=== PATIENT | male | born 1960 | race Caucasian/White ===

== ENCOUNTER 2022-06-04 11:52 | Inpatient (IN) ==
--- NOTE | 2022-05-31 16:07 | Anesthesiology Consultation ---
Date of Service May 31, 2022 Assessment & Plan (1) Encounter for pre-operative examination: Plan - check BSG am DOS. - concussion 05/30/22: Pt reports persistent headache, denies change or worsening. Denies visual changes, nausea, vomiting, dizziness, lightheadedness, photophobia, phonophobia, lethargy or somnolence. - CAD, h/o TN: Pt reports history of TN in 2002 and catheterization without stent placement. He does not follow with cardiology, catheterization records not available. He denies CP or SOB with 1 FOS. - DM: pt self-discontinued metformin several months ago, no recent A1c. Pre-op glucose 275. - ER [facility] 05/30/22: "...fall that occurred on Saturday into Saturday morning. The patient was intoxicated and fell down approximately 20 stairs striking the front of his face on concrete. The patient states that he went about his daily routine Saturday as well as today but was noticing that he was having difficulty with eating and pain to the mid face. The patient also noticed some black eyes. Patient did have LOC at the time of the event does take a baby aspirin for known history of prior heart issue to where he states that he had a heart attack but did not require any stents...frontal bone fracture with small amount of pneumocephalus as well as LeFort II fracture. Patient was ordered antibiotics..." - Case discussed in detail with Dr. Shi who advised given ijury and indication for surgery, patient can proceed at this time without further evaluation or testing from his standpoint. - COVID screening: Per assessment director on 05/31/2022: Travel screen negative, no known COVID-19 positive contacts or current COVID-19 related symptoms in past 2 weeks. To surgeon's discretion if preop COVID testing is needed. Chart Review Chart Review: Acceptable Risk for Surgery and Patient NOT seen in Pre Admission Testing History Surgery Operation Date: 06/04/22 14:15 Proposed Procedures p Lefort II Open Reduction - Duncan Loredo, GEORGE Height/Weight Height: 5 ft 8 in Weight: 83.915 kg Allergies Allergy/AdvReac Type Severity Reaction Status Date / Time No Known Allergies Allergy Unverified 05/31/22 15:13 Medications Home Medications Medication Instructions Recorded Confirmed Last Taken amoxicillin 875 mg-potassium 1 tab PO BID #20 tabs 05/30/22 05/31/22 Unknown clavulanate 125 mg tablet aspirin 81 mg tablet,delayed 81 mg PO HS 05/30/22 05/31/22 05/24/22 release chlorhexidine gluconate 0.12 % 15 ml buccal BID #473 mL 05/30/22 05/31/22 Unknown mouthwash (Peridex) oxycodone 5 mg tablet 5 mg PO Q6 PRN pain #12 tabs 05/30/22 05/31/22 Unknown rosuvastatin 10 mg tablet 10 mg PO HS 05/30/22 05/31/22 05/24/22 Past Medical History Medical History CAD (coronary atherosclerotic disease) Concussion Diabetes was taking metformin but stopped on his own , has not taken in 3-4 months Fall History of COVID-07/2020- sweating, CORDOVA, no hospitalization, no current issues HLD (hyperlipidemia) Hx of myocardial infarction 2002- card cath, no stents- [facility] Past Family History Family History Other No family history of adverse response to anesthesia Past Surgical History Surgical History Hx of appendectomy Hx of cardiac catheterization 2 total (2002 and 2004) --no stents-- [facility] --does not follow w/ cardio Hx of wisdom tooth extraction Social History Smoking Status: Never smoker Do You Dip or Chew Tobacco: No Hx Alcohol Use: Yes alcohol intake frequency: a few times a week Hx Substance Use: No substance use type: does not use Lab Results Anesthesia Preop Results Results Anesthesia Widget: WBC 11.84 K/ul (4.8-10.8) H 05/30/22 Hgb 16.9 g/dl (14.0-18.0) 05/30/22 Hct 49.1 % (40.1-51.0) 05/30/22 Plt 261 K/uL (130-400) 05/30/22 Na 132 mmol/L (136-145) L 05/30/22 K 4.2 mmol/L (3.5-5.1) 05/30/22 Cl 93 mmol/L (98-107) L 05/30/22 CO2 26 mmol/L (21-32) 05/30/22 BUN 19 mg/dl (6-23) 05/30/22 Creat 1.08 mg/dl (0.6-1.4) 05/30/22 Glucose Level 275 mg/dl (70-99(Fasting)) H 05/30/22 Testing Electrocardiogram Date: 05/30/22 Poor data quality NSR, rate 67 bpm Possible left atrial enlargement Cervical Spine Date: 05/30/22 CT There is no evidence of fracture or subluxation involving the cervical spine. Other Testing Head CT 05/30/22 1. There is no hemorrhage, mass effect, or evidence of acute territorial ischemia by CT criteria. 2. There is a comminuted fracture of the frontal bone with depressed fragments involving the anterior wall of the frontal sinus. Fracture extends to the posterior wall of the frontal sinuses and there is trace pneumocephalus. 3. Bilateral orbital and facial bone fractures are partially visualized as above. See report of facial bone CT performed concurrently for detailed facial bone findings. 4. Blood products are noted in the frontal and maxillary sinuses. Face CT 05/30/22 1. Findings consistent with extensive acute bilateral facial fractures involving the midface with separation of the midface from the skull base and involvement of the pterygoid plates. The findings favor a LeFort type II injury. Maxillofacial surgical consultation is recommended. 2. Facial contusions with extensive soft tissue gas, as described above. Minimal orbital gas. No retrobulbar hematoma. Globes intact. 3. Trace pneumocephalus. 4. Hemorrhage within the sinuses related to the fractures, as detailed above.
[~2022-06-04 11:52] MED LIST: LACTATED RINGER'S 1,000 ML IV SCH; LR 15ML/HR IV SCH; ceFAZolin 2000MG 2,000 MG/15 ML SYR IV SCH
[2022-06-04] MEDS ORDERED: TRIAMCINOLONE ACET 0.1% OINT 15 GM TUBE ONE (12:19)
[2022-06-04] MEDS ORDERED: BUPIVACAINE/EPINEPHRINE 0.5% 1:200,000 1.8 ML CARP ONE (12:19)
[2022-06-04] MEDS ORDERED: CHLORHEXIDINE GLUCONATE 0.12% 480 ML MT ONE (12:20)
[2022-06-04] MEDS ORDERED: LIDOCAINE/EPINEPHRINE 1.7 ML CTR ONE (12:20)
[2022-06-04] MEDS ORDERED: MIDAZOLAM HCL 1 MG/ML 2ML VIAL ONE (12:47)
[2022-06-04] MEDS ORDERED: fentaNYL citrate 100 MCG/2 ML VIAL ONE (12:47)
[2022-06-04] MEDS ORDERED: ATROPINE SULFATE 0.1 MG/ML 10ML SYR IV PRN (13:04)
[2022-06-04] MEDS ORDERED: ONDANSETRON INJ 2 MG/ML 2 ML VIAL IV PRN ×2 (13:04→15:55)
[2022-06-04] MEDS ORDERED: ePHEDrine sulfate 50 MG/ML AMP IV PRN (13:04)
[2022-06-04] MEDS ORDERED: HYDROmorphone INJ 1 MG/ML SYRINGE IV PRN (13:04)
[2022-06-04] MEDS ORDERED: fentaNYL citrate 100 MCG/2 ML VIAL IV PRN (13:04)
[2022-06-04] MEDS ORDERED: OXYMETAZOLINE 0.05% 30 ML BTL ONE (13:14)
[2022-06-04] MEDS ORDERED: ACETAMINOPHEN 1000 MG/100 ML IV IV ONE (13:15)
[2022-06-04] MEDS ORDERED: PROMETHAZINE HCL INJ 25 MG/ML 1 ML VIAL ONE (13:15)
--- NOTE | 2022-06-04 13:22 | History & Physical Bridge Note ---
Date of Service June 04, 2022 History & Physical Bridge Note I have examined the patient, reviewed the History & Physical and in the interval since the performance of the History & Physical I have noted the following changes of clinical significance: no changes noted Reviewed the treatment plan OK for the reduction of the Lefort II fracture in OR with GA
[2022-06-04] MEDS ORDERED: HYDROmorphone INJ 2 MG/ML SYR/VIAL ONE (14:08)
[2022-06-04] MEDS ORDERED: KETAMINE 50 MG/5 ML SYRINGE ONE (14:08)
--- NOTE | 2022-06-04 14:19 | Communication Note ---
Date of Service: June 04, 2022 Intubation note: Per surgeon, he was requesting that patient have a nasal tube in order for him to successfully complete the surgery. Patient made aware of risks/benefits of nasal intubation and agreed to proceed. He was given two sprays of Afrin in his right nostril. We wanted to avoid a blind nasal intubation in setting of Lefort II fracture. Plan was for an asleep fiberoptic nasal intubation. Patient was induced and I attempted twice to use fiberoptic scope via his right nare to do a nasal intubation with a 7.5 nasal von tube. I was able to visualize internal structures (did not blindly advance fiberoptic scope at any point) but unable to visualize vocal cords. In between each attempt patient was gently mask ventilated in order to avoid significant hypoxia. On third attempt, I used a combination of the fiberoptic scope via his right nare and an oral glidescope. Using the glidescope, I was able to guide the fiberoptic scope through the vocal cords and watched as the nasal tube was inserted past the vocal cords and into the trachea. I used the fiberoptic scope to correctly place the nasal von at an appropriate depth (28cm at right nare) and it was secured in place. Ballon was inflated and patient had b/l breath sounds and positive ETCO2. Both the surgeon and I positioned the patient's head in midline position and secured his head and nasal tube with silk tape. His vital signs remained stable throughout the intubation attempts.
[2022-06-04] MEDS ORDERED: PROPOFOL IV EMULSION 10 MG/ML 20 ML VIAL IV ONE ×2 (14:23)
[2022-06-04] MEDS ORDERED: SUCCINYLCHOLINE CHLORIDE 20 MG/ML 10 ML VIAL IV ONE (14:23)
[2022-06-04] MEDS ORDERED: LIDOCAINE 2% MPF LOCAL 5 ML VIAL INFIL ONE (14:23)
[2022-06-04] MEDS ORDERED: ONDANSETRON INJ 2 MG/ML 2 ML VIAL ONE (14:23)
[2022-06-04] MEDS ORDERED: ROCURONIUM BROMIDE 10 MG/ML 5 ML VIAL IV ONE (14:23)
[2022-06-04] MEDS ORDERED: LABETALOL HCL IV 5 MG/ML 20ML IV ONE ×2 (14:26→15:06)
[2022-06-04] MEDS ORDERED: DEXAMETHASONE SOD INJ 4 MG/ML VIAL ONE (15:17)
[2022-06-04] MEDS ORDERED: hydrALAZINE HCL 20 MG/ML VIAL ONE (15:46)
[2022-06-04] MEDS ORDERED: MoRPHine SULFATE 2 MG/ML CARP IV PRN (15:55)
[2022-06-04] MEDS ORDERED: MoRPHine SULFATE 4 MG/ML 1 ML CARP\\VIAL IV PRN (15:55)
[2022-06-04] MEDS ORDERED: LORazepam 1 MG in SYRINGE 0 ML IV PRN (15:55)
[2022-06-04] MEDS ORDERED: SODIUM CHLORIDE 0.65% NA SOLN 45 ML (OCEAN) PRN (15:55)
[2022-06-04] MEDS ORDERED: HYDROCODONE/ACETAMOPHEN 5/325MG TAB PO PRN (16:00)
[2022-06-04] MEDS ORDERED: ceFAZolin 2000MG 2,000 MG/15 ML SYR IV ONE (16:00)
[2022-06-04] MEDS ORDERED: D5W AND 1/2NSS + 20MEQ KCL 20 MEQ/1,000 ML BAG IV SCH (16:00)
--- NOTE | 2022-06-04 16:10 | Post Operative Brief Note ---
PG Immediate Post Op with CF Date of Surgery June 04, 2022 Pre & Post Diagnosis Operation Date: 06/04/22 13:15 Pre-Op Diagnosis: Lefort II Fracture Mid Face Fracture Post-Op Diagnosis: Lefort II Fracture Mid Face Fracture I identified the patient and participated in the time-out.: Yes Procedure Operation Date: 06/04/22 13:15 Actual Procedures p Open Reduction of Lefort II Mid Face Fracture/Nasal Fracture(Not Applicable) - Duncan Loredo, GEORGE Surgeon Duncan Loredo, GEORGE Laser Operator none Estimated Blood Loss 20 Findings Consistent with Post-Op Diagnosis LeFort II mid face fracture Anesthesia Type General Complications Elevated Blood pressure and Blood Sugar
[2022-06-04] MEDS ORDERED: INSULIN ASPART PER UNIT ONE (16:16)
[2022-06-04] MEDS: INSULIN ASPART PER UNIT SC STA ×2 (16:18→19:03)
--- NOTE | 2022-06-04 16:22 | XRay Report ---
XR mandible <4V CLINICAL HISTORY: Status Post-Op Surgery AP Mandibular and Jaw View COMPARISON: Facial bone CT May 30, 2022. FINDINGS: These images demonstrate postoperative findings consistent with open reduction and interna l fixation of a LeFort type II mid face fractures. Hardware is obscured on AP projection partially vi sualized on crosstable lateral projection. No unexpected radiopaque foreign bodies are identified. IMPRESSION: Postoperative radiographs demonstrating open reduction and internal fixation of LeFort t ype II midface fractures. ACT 112: Negative or not required by law. Electronically signed by: Zev Monk M.D. 06/04/2022 4:21 PM
--- NOTE | 2022-06-04 16:32 | Consultation ---
Date of Consultation June 04, 2022 Assessment & Plan (1) LeFort II fracture: (2) Fracture of frontal bone: (3) Fall: (4) CAD (coronary atherosclerotic disease): (5) HTN (hypertension): (6) Diabetes: (7) HLD (hyperlipidemia): Plan 62 year old male that underwent a LaFort procedure today s/p fall that occurred 05/29. Additional PMH includes DM2, HLD, CAD and HTN. [facility] Hospitalists have been consulted for post-operative medical management. Uncontrolled sugars and BP monitoring. LeFort II fracture: Fracture frontal bone: Status post fall: POD# 0 s/p LaFort II open reduction repair with Dr. Loredo Per maxillofacial surgery for pain control, wound care, anticoagulation and activities Monitor H&H; preop Hgb 16.9; trend in AM incentive spirometry when able Face CT: extensive acute bilateral facial fractures involving the midface with separation of the midface from the skull base and involvement of the pterygoid plates Head CT negative for hemorrhage; comminuted fracture of the frontal bone and anterior frontal sinus. Bilateral orbital and facial bone fractures Did not require wiring of mandibles Once awake and clears dysphagia screening; able to start clear liquids per Dr. Loredo's order. CAD: Hypertension: Status post AMI 2002; admitted to [facility] x2 in 2002 and 2004 without intervention needed Takes aspirin; hold until oral bleeding subsides; reevaluate tomorrow Diabetes type 2: Was to be taking metformin however patient has stopped taking that months ago Glucose uncontrolled preop and postop Patient received dexamethasone 12 mg intraoperatively; Received 5 units of NovoLog in OR for serum glucose 269 Administer 10 Units of Lantus now FSBS Q4; transition to AC/HS when patient awake and tolerating diet SSI Novolog ordered Glycemic pharmacy consult placed A1c in a.m. Hyperlipidemia: Takes atorvastatin; continue Check lipid panel in a.m. Disposition: PCP: Previously Dr. Gaston; has not seen him in a long while - would like to establish with [facility] providers upon discharge VTE prophylaxis: SCDs/TEDs for now CODE STATUS: Full code I personally was able to review all current laboratory work and diagnostic images obtained in the ED. Additionally, I was able to review the patients past medication reconciliation and history with direct visualization in the patients chart. This patient was discussed with Dr. Cummins. Please feel free to contact [facility] Hospitalist service at any time via [place] text. Supervising Physician Co-Signing Physician Notes I have seen and examined the patient and have discussed the case with the provider above. I agree with the assessment and plan as stated. 62 yo diabetic man appears in no distress post-op. Fiance is by his side. he denies feeling hungry and reports no uncontrolled pain or nausea. Glucose checked and continuing close insulin coverage overnight with glycemic pharmacist help. BP is around goal. Medications reviewed and agree with plan above. Thank you for this consultation. DO Placido History of Present Illness Requesting Physician: Dr. Loredo Reason for Consultation: post operative medical management Attending Physician: Duncan Loredo DMD History of Present Illness Mr. Maddox is a 62 year old male that presented to the [facility] on 05/30 s/p fall that occurred Monday 05/28 into Tuesday 05/29. Patient initially reported that he fell down 10-12 stairs and fell on his face, on concrete. He reports that he did have LOC at the time and vomiting. Face CT and head CT were obtained with extensive acute bilateral facial fractures involving the midface with separation of the midface from the skull base and involvement of the pterygoid plates, facial contusions with extensive soft tissue gas, trace pneumocephalus, and bilateral orbital and facial bone fractures. Oral maxillofacial surgery was consulted and due to extensive swelling open reduction LeFort II procedure was delayed until today. Patient has a past medical history that includes CAD and AMI in 2002, HTN, diabetes mellitus type 2 and HLD. Patient was seen in the PACU and was able to open his eyes and answer simple yes or no questions but was generally still tired. I was able to call his long-term girlfriend Lexi at [phone] and discussed at length. He was on 3 L oxygen mask when we visited with him. Patient did receive dexamethasone 12 mg intraoperatively; preop sugars 270's received 5 units NovoLog per anesthesia; blood sugar increasing 350, see below for further orders including Lantus and NovoLog. [facility]. Please see A/P for further details. Allergies Allergy/AdvReac Type Severity Reaction Status Date / Time No Known Allergies Allergy Verified 06/04/22 12:13 Home Medications Medication Instructions Recorded Confirmed Type aspirin 81 mg tablet,delayed 81 mg PO HS 05/30/22 06/04/22 History release chlorhexidine gluconate 0.12 % 15 ml buccal BID #473 mL 05/30/22 06/04/22 Rx mouthwash (Peridex) oxycodone 5 mg tablet 5 mg PO Q6 PRN pain #12 tabs 05/30/22 06/04/22 Rx rosuvastatin 10 mg tablet 10 mg PO HS 05/30/22 06/04/22 History amoxicillin 875 mg-potassium 1 tab PO BID #10 tabs 06/05/22 Rx clavulanate 125 mg tablet blood sugar diagnostic (OneTouch #100 ea 06/05/22 Rx Ultra Test strips) hydrocodone 5 mg-acetaminophen 325 1 tab PO Q4H PRN pain #10 tabs 06/05/22 Rx mg tablet insulin glargine 100 unit/mL (3 30 unit (0.3 mL) subcut QAM #15 mL 06/05/22 Rx mL) subcutaneous pen (Lantus Solostar U-100 Insulin) metformin 500 mg tablet,extended 500 mg PO DAILY #30 tabs 06/05/22 Rx release 24 hr pen needle, diabetic 32 gauge x #100 ea 06/05/22 Rx 5/32" Patient History Medical History CAD (coronary atherosclerotic disease) Concussion Diabetes was taking metformin but stopped on his own , has not taken in 3-4 months Fall History of COVID-19 07/2020- sweating, CORDOVA, no hospitalization, no current issues HLD (hyperlipidemia) HTN (hypertension) [facility] 2002[facility] History (Updated 06/05/22 @ 10:33 by Karlie Beck RN) Hx of appendectomy Hx of cardiac catheterization 2 total (2002 and 2004) --no stents-- [facility] --does not follow w/ cardio Hx of oral surgery (06/04/22) Open Reduction of Lefort II Mid Face Fracture/Nasal Fracture(Not Applicable) - Duncan Loredo, DMD Hx of wisdom tooth extraction Family History Other No family history of adverse response to anesthesia Social History Smoking Status: Never smoker Second Hand Exposure: No; Hx Alcohol Use: Yes Hx Substance Use: No Preferred Language: Spanish Communication Ability: Effective Cash Checker Required: No Beliefs That Will Affect Care: None Current Living Situation: Significant Other current occupational status: employed Feels Safe at Home: Yes Assistive Devices: None Review of Systems Review of Systems: Unobtainable due to reduced consciousness Physical Exam Physical Exam: Neuro: AAOx1, PERRLA, no aphagia HEENT: head normocephalic, moist mucus membranes CV: S1/S2, (-) M/G/R, (+) facial edema, cap refill < 3 seconds Resp: Lungs CTA in all ackerman. On RA GI: Abdomen S/NT/ND, Ax4 bowel sounds, (-) CVA tenderness Musculoskeletal: unable to assess; still waking up from anesthesia Skin: (-) rashes , (-) erythema. Psych: euthymic mood Results & Data ([facility]) Vital Signs (Past 12 Hours) Vital Signs Temp Pulse Resp BP Pulse Ox O2 Del Method 06/04/22 12:20 37.0 C 89 20 175/113 H 99 Room Air Diagnostic Findings Mandible X-Ray 06/04/22 15:56 XR mandible <4V CLINICAL HISTORY: Status Post-Op Surgery AP Mandibular and Jaw View COMPARISON: Facial bone CT May 30, 2022. FINDINGS: These images demonstrate postoperative findings consistent with open reduction and internal fixation of a LeFort type II mid face fractures. Hardware is obscured on AP projection partially visualized on crosstable lateral projection. No unexpected radiopaque foreign bodies are identified. IMPRESSION: Postoperative radiographs demonstrating open reduction and internal fixation of LeFort type II midface fractures. ACT 112: Negative or not required by law. Electronically signed by: Zev Monk M.D. 06/04/2022 4:21 PM (1) Fracture of frontal bone Encounter type: initial encounter (2) LeFort II fracture Encounter type: initial encounter (3) Fall Encounter type: initial encounter Qualified Code(s): W19.XXXA - Unspecified fall, initial encounter
[2022-06-04] MEDS ORDERED: GLUCOSE 10 TAB/TUBE PO PRN (16:57)
[2022-06-04] MEDS ORDERED: GLUCOSE 40% GEL 15 GM TUBE PO PRN (16:57)
[2022-06-04] MEDS ORDERED: DEXTROSE 50% 50 ML SYRINGE IV PRN (16:57)
[2022-06-04] MEDS ORDERED: GLUCAGON FOR INJ 1 MG VIAL SQ PRN (16:57)
[2022-06-04] MEDS ORDERED: PHARMACY GLYCEMIC MGMT CONSULT PRN (16:57)
[2022-06-04] MEDS ORDERED: CARBOHYDRATES FOR HYPOGLYCEMIA PO PRN (16:57)
[2022-06-04] MEDS: INSULIN ASPART PER UNIT SC SCH ×3 (17:45→23:49)
--- NOTE | 2022-06-04 17:56 | Anesthesiology Progress Note ---
Date of Service June 04, 2022 Anesthesia Post Procedure Vital Signs Vital Signs: Temp Pulse Resp BP Pulse Ox O2 Del Method O2 Flow Rate 06/04/22 17:35 36.4 C L 65 14 147/75 H 94 Oxymask 3 06/04/22 17:25 36.4 C L 65 13 138/82 93 Oxymask 3 06/04/22 17:05 36.4 C L 62 13 151/83 H 94 Oxymask 3 06/04/22 17:15 36.4 C L 62 13 137/77 94 Oxymask 3 06/04/22 16:55 36.4 C L 67 13 160/81 H 94 Oxymask 3 06/04/22 16:45 36.4 C L 61 13 148/94 H 96 Oxymask 3 06/04/22 16:35 61 14 165/86 H 95 Oxymask 3 06/04/22 16:25 70 14 143/81 H 91 Oxymask 3 06/04/22 16:15 66 18 154/75 H 92 Oxymask 5 06/04/22 16:05 56 L 16 145/84 H 92 Oxymask 5 06/04/22 15:57 36.5 C 57 L 14 129/88 94 Oxymask 5 06/04/22 12:20 37.0 C 89 20 175/113 H 99 Room Air Transfer of Care Handoff Completed per policy Notes Mental Status: alert / awake / arousable Patient Amnestic to Procedure: Yes Nausea / Vomiting: adequately controlled Pain: adequately controlled Airway Patency, RR, SpO2: stable & adequate BP & HR: stable & adequate Hydration State: stable & adequate Anesthetic Complications: no major complications apparent and Pt Satisfied with anesthetic care Notes: The patient was signed out to me by Dr. Gibson in PACU. He has a history of NIDDM. He was given Decadron IV in the OR due to having a nasal intubation. Initial postop BSG was 269. He was given 5 units Novolog SC. BSG recheck after 40 minutes was 351. A second BSG was obtained that was 272. Sravani Bradford from the hospitalist service took over care of the patient and has ordered him Lantus 10 units along with an insulin sliding scale.
[2022-06-04] MEDS: KETOROLAC 30 MG/ML VIAL IV SCH ×2 (19:09→23:49)
[2022-06-04] MEDS: LACTATED RINGER'S 1,000 ML IV SCH (19:10)
[2022-06-04] MEDS: CHLORHEXIDINE GLUCONATE 0.12% 480 ML MT SCH (20:02)
[2022-06-04] MEDS ORDERED: INSULIN ASPART PER UNIT SC SCH (21:00)
[2022-06-04] MEDS ORDERED: TRIAMCINOLONE ACET 0.1% OINT 15 GM TUBE EXT SCH (21:00)
[2022-06-04] MEDS ORDERED: LANTUS PER UNIT CHARGE SQ ONE (21:00)
[2022-06-05] MEDS: INSULIN ASPART PER UNIT SC SCH ×3 (03:48→13:01)
[2022-06-05] MEDS: LACTATED RINGER'S 1,000 ML IV SCH (05:05)
[2022-06-05] MEDS: KETOROLAC 30 MG/ML VIAL IV SCH ×2 (05:50→12:08)
[2022-06-05 08:01] LABS: Hematocrit (blood only) 39.5 % (40.1-51.0); Hemoglobin 13.5 g/dl (14.0-18.0); Mean Corpuscular Hgb Conc 34.2 g/dL (32.0-36.0); Mean Corpuscular Volume 90.8 fL (80.0-100.0); Mean Platelet Volume 9.6 fL (9.4-12.4); Platelet Count 273 K/uL (130-400); RDW Coefficient of Variation 11.8 % (11.5-14.5); RDW Standard Deviation 39.1 fL (36.4-46.3); Red Blood Count 4.35 M/uL (4.63-6.08); White Blood Count 11.98 K/ul (4.8-10.8)
[2022-06-05 08:22] LABS: BUN Creatinine Ratio 19.5 (10-20); Calcium 8.7 mg/dl (8.5-10.1); Chol HDL Ratio 5.7 (0-5); Creatinine Clr Calc Pharmacy 99.3 ml/min; Est GFR (African American) 110.6 ml/min; Est GFR (Non-African American) 95.4 ml/min; Potassium 4.1 mmol/L (3.5-5.1)
[2022-06-05] MEDS: CHLORHEXIDINE GLUCONATE 0.12% 480 ML MT SCH (08:58)
[2022-06-05] MEDS ORDERED: LANTUS PER UNIT CHARGE SQ ONE (09:00)
[2022-06-05 09:18] LABS: Estimated Average Glucose 278 mg/dl; Hemoglobin A1C 11.3 % (4.5-5.6)
--- NOTE | 2022-06-05 09:43 | Oral/Maxillofacial Progress Nt ---
Date of Service June 05, 2022 Assessment & Plan Admission and Anticipated Discharge Date Admission Date: June 04, 2022 Subjective Rory under went a uneventful reduction of a LeFort II fracture with nasal none fracture. In addition a deep stab wound laceration of the bridge of his nose was repaired. Pre op his BS and BP was very high. It was determined that once the procedure was done given the BP and BS elevation and the fact he was not medically treated with medication sending him home without addressing this is not appropriate. I discussed the case with the [facility] Hospitalist service and admission for control of his BP and BS was medically necessary. I therefore admitted Rory to med/surg and consulted the hospitalist service. This Am Rory is doing very well from an Oral Surgery point of view. His nose is well positioned, his midface and occlusion are very stable. The LeFort II fracture is stable, bite and TMJ is excellent. At this time the hospitalist service is managing blood pressure and blood sugar. As soon as the medical service feels he can be discharged I will arrange for D/C and outpatient follow up. I will order a post op CT to evaluate the post op position of the fracture sites. Appreciate the medical support. Results & Data ([facility]) Vital Signs (Past 12 Hours) Vital Signs Temp Pulse Resp BP BP Pulse Ox Pulse Ox 06/05/22 07:18 37.0 C 57 L 16 112/67 96 06/05/22 06:15 94 06/05/22 04:55 94 06/05/22 03:51 36.9 C 56 L 16 148/77 H 95 06/05/22 03:00 95 06/05/22 02:00 94 06/05/22 01:10 96 06/04/22 23:55 95 06/04/22 23:00 94 06/04/22 22:00 98 06/04/22 22:41 36.8 C 67 19 128/71 94 O2 Del Method O2 Del Method O2 Flow Rate O2 Flow Rate 06/05/22 07:18 Oxymask 1 06/05/22 06:15 Oxymask 1 06/05/22 04:55 Oxymask 1 06/05/22 03:51 Oxymask 1 06/05/22 03:00 Oxymask 2 06/05/22 02:00 Oxymask 2 06/05/22 01:10 Oxymask 2 06/04/22 23:55 Oxymask 2 06/04/22 23:00 Oxymask 2 06/04/22 22:00 Nasal Cannula 2 06/04/22 22:41 Oxymask 2 PG Care Time/CCT Total # of Minutes Spent Total Time Spent with Patient: Total time spent is greater than 50% in coordination of care (as documented) at patient's floor/unit and/or counseling patient: Coding Level of Care Code 40442 Subseq Hosp Care Lvl 1
--- NOTE | 2022-06-05 10:41 | Pharmacy Report ---
Pharmacy Glycemic Short Note 2 - Date of Service June 05, 2022 - Glycemic Short BSG Results (Last 24 hours): 06/04/22 06/04/22 06/04/22 12:09 15:59 17:01 Glucose POC Glucose 256 H 269 H 351 H* 06/04/22 06/04/22 06/04/22 17:03 18:51 20:57 Glucose POC Glucose 272 H 261 H 236 H 06/04/22 06/05/22 06/05/22 23:42 03:41 07:13 Glucose 193 H POC Glucose 228 H 183 H 06/05/22 08:06 Glucose POC Glucose 170 H OUTPATIENT ANTIDIABETIC REGIMEN: * metformin 1 gm PO BID (not taking x several months) * HbA1C = 11.3% (06/05/22) ASSESSMENT: * Mr Maddox is a 62 y/o M with a PMH of T2DM, not currently taking any medications, who presents with facial fracture s/p repair. Patient received dexamethasone 12 mg IV x 1 intraop. * BSGs yesterday were 256-272 mg/dL then 236-228-183 mg/dL overnight. * Patient received Lantus 15 units yesterday then 8 units overnight. * Fasting this AM was 170 mg/dL. Will continue Lantus 15 units SQ BID with scale in place for this evening. * Novolog weight-based stress of 3 for dexamethasone. PLAN FOR INPATIENT GLYCEMIC CONTROL: * Hold outpatient oral diabetes medications * Basal insulin * Lantus 15 units SQ BID (8 units if BSG < 120 mg/dL; 20 units if BSG > 180 mg/L) * Bolus insulin * NovoLog per scale ACHS or Q6hrs while NPO * Goal Range: Low 110 mg/dL - High 140 mg/dL * Correction Factor: 20 mg/dL/unit * Nutritional / Prandial insulin per carb ratio of 1 unit per 6 grams CHO consumed
--- NOTE | 2022-06-05 11:15 | CT Scan Report ---
MAXILLOFACIAL CT WITHOUT CONTRAST CLINICAL HISTORY: s/p reduction of LeFort II fractures COMPARISON STUDY: Facial bone CT May 30, 2022. Mandible radiographs June 04, 2022. TECHNIQUE: A maxillofacial CT was performed without IV contrast. Coronal and sagittal reformats were viewed. Automated exposure control was utilized for the study. A dose lowering technique was utiliz ed adhering to the principles of ALARA. FINDINGS: Extensive bilateral facial fractures are again noted. There are are expected findings follo wing bilateral maxillary reduction and internal fixation of the Lefort type II fractures. Fracture al ignment appears near anatomic following internal fixation. Air-fluid levels with hemorrhage within th e maxillary sinuses are noted. The right frontal sinus is largely opacified. Otherwise, there is mild sinus opacification. The globes are intact. No retrobulbar hematoma. Zygomatic arches are intact. No te is again made of fractures of the hill of the bilateral maxillary sinuses, the bilateral pterygoi d plates, the bilateral nasal bones, bilateral orbital floors, medial hill of the orbits as well as frontal bone fractures extending through the frontal sinuses. These fractures are similar to prior CT . Pneumocephalus is no longer identified. Alignment of the temporomandibular joints is anatomic. Soft tissue gas is again noted within the infratemporal fossa extending into the adjacent soft tissues. N o fracture within the upper cervical spine is noted. No mandibular fracture. IMPRESSION: 1. Expected findings following internal fixation of the Lefort type II midface fractures, as describe d above. Fractures in near anatomic alignment. 2. Numerous additional acute bilateral facial fractures, similar to CT of May 30, 2022, as detail ed above. Globes intact. No retrobulbar hematoma. 3. Redemonstration of frontal bone fractures extending through the frontal sinuses. Hemorrhage within the sinuses, as described above. ACT 112: Negative or not required by law. Electronically signed by: Zev Monk M.D. 06/05/2022 11:13 AM
--- NOTE | 2022-06-05 13:20 | Hospitalist Progress Note ---
Date of Service June 05, 2022 Assessment & Plan (1) LeFort II fracture: (2) Fracture of frontal bone: (3) Fall: (4) CAD (coronary atherosclerotic disease): (5) HTN (hypertension): (6) Diabetes: (7) HLD (hyperlipidemia): Plan 62 year old male that underwent a LaFort procedure today s/p fall that occurred 05/29. Additional PMH includes DM2, HLD, CAD and HTN. [facility] Hospitalists have been consulted for post-operative medical management. Uncontrolled sugars and BP monitoring. LeFort II fracture: Fracture frontal bone: Status post fall: POD# 0 s/p LaFort II open reduction repair with Dr. Loredo Per maxillofacial surgery for pain control, wound care, anticoagulation and activities Monitor H&H; preop Hgb 16.9; trend in AM incentive spirometry when able Face CT: extensive acute bilateral facial fractures involving the midface with separation of the midface from the skull base and involvement of the pterygoid plates Head CT negative for hemorrhage; comminuted fracture of the frontal bone and anterior frontal sinus. Bilateral orbital and facial bone fractures Did not require wiring of mandibles Once awake and clears dysphagia screening; able to start clear liquids per Dr. Loredo's order. POD #1-06/05/2020\ Appreciate evaluation by oropharyngeal surgeon and recommended home awaiting medical clearance CAD: Hypertension: Status post AMI 2002; admitted to [facility] x2 in 2002 and 2004 without intervention needed Takes aspirin; hold until oral bleeding subsides; reevaluate tomorrow Remains hemodynamically stable without any cardiac symptoms Diabetes type 2: Was to be taking metformin however patient has stopped taking that months ago Glucose uncontrolled preop and postop Patient received dexamethasone 12 mg intraoperatively; Received 5 units of NovoLog in OR for serum glucose 269 Administer 10 Units of Lantus now FSBS Q4; transition to AC/HS when patient awake and tolerating diet SSI Novolog ordered Glycemic pharmacy consult placed Hemoglobin A1c is more than 11-he had been on metformin which she has not been taking now Advised insulin on top of metformin and the patient is agreeable Wants to go home-we will need to be taught how to give insulin Likely discharge this afternoon Hyperlipidemia: Takes atorvastatin; continue Check lipid panel in a.m.-total cholesterol is slightly elevated at 232 othe rwise unremarkable Disposition: PCP: Previously Dr. Gaston; has not seen him in a long while - would like to establish with [facility] providers upon discharge VTE prophylaxis: SCDs/TEDs for now CODE STATUS: Full code Like to be discharged this afternoon Wants to see a [facility] physician at [facility] for follow-up Admission and Anticipated Discharge Date Admission Date: June 04, 2022 Subjective 06/05/2022 The patient was seen and examined in medical floor He is a status post reduction of LeFort II midface fracture/nasal fracture on 06/04/2022 He has been feeling much better and has been eating normal Denies any other significant symptoms and wants to go home this afternoon Review of Systems Review of Systems: All systems reviewed and are unremarkable except as noted below Constitutional: Facial swelling, in December nasal bridge Physical Exam Physical Exam: Lying in bed comfortably Constitutional: well developed, well nourished, + ill appearing and + obese Eyes: PERRL, conjunctivae normal, anicteric sclerae ENMT: external ear and nose normal, oropharynx normal Neck: trachea midline, no thyromegaly Respiratory: no respiratory distress Auscultation: lungs clear to auscultation bilaterally Cardiovascular: Rate/Rhythm: regular rate and regular rhythm Heart Sounds: normal S1 and normal S2; no murmur Extremities: no edema Gastrointestinal (Abdomen): Inspection/Auscultation: normal bowel sounds; abdomen not distended Percussion/Palpation: abdomen soft; abdomen nontender Musculoskeletal: No acute arthritis involving any joint Neurologic: Alert, awake and oriented x3. No focal sensory or no motor deficit appreciated Lymphatic: no cervical or axillary lymphadenopathy Results & Data Results & Data ([facility]) Vital Signs (Past 12 Hours) Vital Signs Temp Pulse Resp BP BP Pulse Ox Pulse Ox 06/05/22 12:21 36.8 C 56 L 18 111/68 95 06/05/22 07:30 06/05/22 09:45 94 06/05/22 07:18 37.0 C 57 L 16 112/67 96 06/05/22 06:15 94 06/05/22 04:55 94 06/05/22 03:51 36.9 C 56 L 16 148/77 H 95 06/05/22 03:00 95 06/05/22 02:00 94 O2 Del Method O2 Del Method O2 Flow Rate O2 Flow Rate 06/05/22 12:21 Room Air 06/05/22 07:30 Oxymask 2 06/05/22 09:45 Room Air 06/05/22 07:18 Oxymask 1 06/05/22 06:15 Oxymask 1 06/05/22 04:55 Oxymask 1 06/05/22 03:51 Oxymask 1 06/05/22 03:00 Oxymask 2 06/05/22 02:00 Oxymask 2 Laboratory Results Short CBC 06/05/22 Range/Units 07:13 WBC 11.98 H (4.8-10.8) K/ul Hgb 13.5 L (14.0-18.0) g/dl Hct 39.5 L (40.1-51.0) % Plt Count 273 (130-400) K/uL BMP 06/05/22 07:13 Sodium 135 L Potassium 4.1 Chloride 100 Carbon Dioxide 29 BUN 16 Creatinine 0.82 Glucose 193 H Calcium 8.7 Medications Administered Current Inpatient Medications Hydrocodone Bitart/Acetaminophen (Hydrocodone/Acetamophen 5/325mg Tab) 2 tab PO Q4 PRN PRN Reason: Pain Stop: 06/18/22 15:59 Last Admin: 06/05/22 03:48 Dose: 2 tab Chlorhexidine Gluconate (Chlorhexidine Gluconate 0.12% 480 Ml) 15 ml MT BID IDRIS Stop: 07/04/22 20:59 Last Admin: 06/05/22 08:58 Dose: 15 ml Dextrose (Dextrose 50% 50 Ml Syringe) 25 - 50 ml IV UD PRN; Protocol PRN Reason: Hypoglycemia Protocol Stop: 07/04/22 16:56 Glucagon (Glucagon For Inj 1 Mg Vial) 1 mg SQ UD PRN; Protocol PRN Reason: Hypoglycemia Protocol Stop: 07/04/22 16:56 Glucose (Glucose 40% Gel 15 Gm Tube) 15 - 30 gm PO UD PRN; Protocol PRN Reason: Hypoglycemia Protocol Stop: 07/04/22 16:56 Glucose (Glucose 10 Tab/Tube) 4 - 8 tab PO UD PRN; Protocol PRN Reason: Hypoglycemia Treatment Stop: 07/04/22 16:56 Lorazepam 1 mg/ Syringe 1 mls @ 2 mls/min IV Q4H PRN PRN Reason: Sedation/Anxiety Stop: 07/04/22 15:54 Lactated Ringer's (Lr) 1,000 mls @ 100 mls/hr IV .Q10H [facility] Stop: 06/05/22 14:29 Last Admin: 06/05/22 05:05 Dose: 100 mls/hr Insulin Aspart (Insulin Aspart Per Unit) 0 units SC ACHS [facility] Stop: 07/04/22 17:44 Last Admin: 06/05/22 13:01 Dose: 8 units Insulin Glargine (Lantus Per Unit Charge) 0 units SQ HS [facility]; Protocol Stop: 06/05/22 21:01 Ketorolac Tromethamine (Ketorolac 30 Mg/Ml Vial) 30 mg IV Q6 [facility] Stop: 06/09/22 17:59 Last Admin: 06/05/22 12:08 Dose: 30 mg Miscellaneous (Carbohydrates For Hypoglycemia ) 15 - 30 gm PO UD PRN PRN Reason: Hypoglycemia Protocol Stop: 07/04/22 16:56 Miscellaneous Information (Pharmacy Glycemic Mgmt Consult) 1 each N/A UD PRN PRN Reason: Consult Stop: 07/04/22 16:56 Morphine Sulfate (Morphine Sulfate 2 Mg/Ml Carp) 2 mg IV Q1H PRN PRN Reason: moderate pain (scale 4-6) Stop: 06/18/22 15:54 Morphine Sulfate (Morphine Sulfate 4 Mg/Ml 1 Ml Carp\Vial) 4 mg IV Q1H PRN PRN Reason: severe pain (scale 7-10) Stop: 06/18/22 15:54 Ondansetron HCl (Ondansetron Inj 2 Mg/Ml 2 Ml Vial) 4 mg IV Q6H PRN PRN Reason: Nausea And Vomiting Stop: 07/04/22 15:54 Sodium Chloride (Sodium Chloride 0.65% Na Soln 45 Ml (Hardin)) 2 sprays NA Q2H PRN PRN Reason: Nasal Congestion Stop: 07/04/22 15:54 Triamcinolone Acetonide (Triamcinolone Acet 0.1% Oint 15 Gm Tube) 1 appln EXT HS [facility] Stop: 07/04/22 20:59 Last Admin: 06/04/22 20:01 Dose: 1 appln (1) LeFort II fracture Encounter type: initial encounter (2) Fracture of frontal bone Encounter type: initial encounter (3) Fall Encounter type: initial encounter Qualified Code(s): W19.XXXA - Unspecified fall, initial encounter
[2022-06-05 14:57] VITALS: BP 119/71; TEMP 99.1; O2SAT 93
[2022-06-05 17:31] VITALS: PULSE 67
[2022-06-05] MEDS ORDERED: LANTUS PER UNIT CHARGE SQ SCH (21:00)
--- NOTE | 2022-06-12 17:19 | Operative Report ---
PG Post Operative Report Pre & Post Diagnosis Operation Date: 06/04/22 13:15 Pre-Op Diagnosis: Lefort II Fracture Mid Face Fracture Post-Op Diagnosis: Lefort II Fracture Mid Face Fracture I identified the patient and participated in the time-out.: Yes Procedure Operation Date: 06/04/22 13:15 Actual Procedures p Open Reduction of Lefort II Mid Face Fracture/Nasal Fracture(Not Applicable) - Duncan Loredo DMD Surgeon Duncan Loredo, GEORGE Supervisor [employer] none Estimated Blood Loss 20 Findings Consistent with Post-Op Diagnosis Unstable LeFort II fracture Nasal laceration Specimens none Drains none Anesthesia Type General Complications none Indications LeFort II fracture Description of Procedure LeFort II Fracture and Nasal laceration Repair CPT 43365 LeFort II Fracture repair ICD 10 SO2.412B CPT 76439 Repair 1 cm intermediate lateral of the nose ICD10 S01.21XA When Rory was cleared for surgery general anesthesia was achieved, the eyes were protected by the anesthesia dept criteria.A time out was take for patient ID, antibiotics, equipment and position verification once all agreed the procedure began. Local anesthesia was given into each area using Marcaine with a vasoconstrictor ( 1.8 ml per site). A throat pack was placed after the oral cavity was irrigated with saline. Once a surgical level of anesthesia was obtained and the local anesthesia was given time for the blocks the surgery was started. I turned my attention to the fractured maxilla I turned my attention now to the fractured maxilla. This patient has a LeFort II fracture with separation of the naso-maxillary area. The maxillary-nasal segment was fractured resulting in a posterior displacement of the maxilla with open bite. To accomplish the reduction of this Le Fort II a maxillary osteotomy soft tissue incision was carried out. An electrocautery instrument was used to make an incision from the 1st bicuspid area on the right side across the midline to the opposite bicuspid area. The tissues reflected in the usual manner to expose the mucoperiosteal tissue and to get good exposure of the anterior nasal spine, the roots of the maxillary anterior and posterior teeth and the piriform rim. In addition I was able to get good visualization of the posterior maxilla and noted the the buttress was not fractured and would act a stable posterior vertical support. Once the tissue was was reflected I was able to get a good idea of the fracture anatomy and density of the bone to plan the direct fixation process. I was able to then reflect posteriorly to get good access to the pterygoid plate areas. I then spent a lot of time dissecting superior to the nasal bones to ensure that we had good visualization of the stable bone. With temporary interdental fixation I established occlusion. Once I was able to reduce the LeFort II fracture and line up the teeth I had excellent alignment of the fracture sites. Starting posterior I was able to bend bone plates and placed them with fixation screws. Once I was able to achieve superior stability the anterior maxilla, inferior orbital rims and nasal frontal area were very stable. I now adapted 2 anterior plates on stable bone. Once this was done the stability of the LeFort fracture was excellent. I now removed the fixation wires and the intermediate splint.I noted that the maxilla was extremely stable and the occlusion was reproducible.The maxilla was now stable and in ideal post surgical position I irrigated the maxillary sinuses of any debris and/or polyps that were noted. Hemostasis was in good control.I noted that the maxilla was now positioned in its Natural position The hemostasis was in control and all bony margins were stable and in excellent position. At this time, the oropharyngeal throat pack was placed and I then began the closure. To ensure proper closure with good anatomical form, I was able to grasp the alar cartilages on both the right and left side and then using a 3-0 Mersilene suture, I was able to perform an alar cinch technique to ensure good positioning of the lateral alar cartilages of the nose and to establish good base anatomy of the nose. Once this was done, I made sure that the nasal septum was well positioned in the midline. Being satisfied with this, I then began the V-Y closure of the mucosal tissue starting in the midline and then closed laterally on either side to ensure an even contouring of the tissue. When all was said and done, we had excellent closure of the soft tissue with great support of the nose. Overall, he did extremely well from the surgery, we had minimal blood loss, probably less than 20 ml At this time with a 6-0 nylon suture the 1 cm irregular nasal laceration I was able to sutures the tissues to allow for an ideal closure of he trap door intermediate1 cm laceration on the bridge of the nose. The patient was now turned over to the Anesthesia Department. The patient was allowed to recover and then once fully recovered, was extubated and transferred to the hospital litter and moved to the recovery room with all VS stable. Overall, the procedure went extremely well and I am anticipating a good postoperative phase. I attest to the content of the Intraoperative Record and any orders documented therein. Any exceptions are noted below.
--- NOTE | 2022-06-12 21:58 | Discharge Summary ---
Date of Service June 12, 2022 LeFort II fracture repair post op note at 24 hrs Patient was observed for less the 23 hrs post op due to extensive surgery. Issues with blood pressure and Hypoglycemia. I consult the medical service to manage the blood pressure and Blood Suture. Open rounds the next morning the BP and BS were normalized He will be given medication to control the BP and BS as an outpatient. He is doing very well from the fracture repair and I am planning Discharge today. Excellent result, ROM improving Sutures to be removed on June 12 at 3:30 Tissue tone, gingival tissue--excellent Occlusion very stable with a reproducible bite. No TMJ issues-pain, nose, pop. Reviewed use of functional elastics No nasal congestion or bleeding, septum well positioned. No sinus issues Facial alignment excellent Reviewed post op care--diet, oral care Next appointment set up for: 06-12-2022 at 3:30 Overall excellent result from trauma surgery repair of Le Fort II fracture RTC for continued follow up OK for D/C today see Discharge instruction and prescriptions. Discharge Data Consultations 06/04/22 16:00 Consult Hospitalist Routine Procedures Performed Operation Date: 06/04/22 13:15 Actual Procedures p Open Reduction of Lefort II Mid Face Fracture/Nasal Fracture(Not Applicable) - Duncan Loredo DMD Coding Level of Care Code D/C DAY MANAGEMENT <30 MINS
== END 2022-06-05 17:59 | disposition home or self-care (01) | DRG 141 ==
LOC: ASU 11:52 → 3N 16:25